=== PATIENT | male | born 1985 ===

== ENCOUNTER 2017-01-10 09:03 | Inpatient (IN) | payer BC, OTHER ==
[~2017-01-10] VITALS: Ht 165.1 cm; Wt 45.4 kg
[2017-01-10] MEDS ORDERED: BUPRENORPHINE HCL 2 MG TAB.SUBL SL PRN (15:00)
[2017-01-10] MEDS ORDERED: MAGNESIUM HYDROXIDE 30 ML LIQUID UDC PO PRN (15:00)
[2017-01-10] MEDS ORDERED: ACETAMINOPHEN 325 MG TABLET PO PRN (15:00)
[2017-01-10] MEDS ORDERED: ONDANSETRON 4 MG/2 ML VIAL IM PRN (15:00)
[2017-01-10] MEDS ORDERED: LOPERAMIDE HCL 2 MG CAPSULE PO PRN ×2 (15:00)
[2017-01-10] MEDS ORDERED: DICYCLOMINE HCL 20 MG TABLET PO PRN (15:00)
[2017-01-10] MEDS ORDERED: diphenhydrAMINE 50 MG CAPSULE PO PRN (15:00)
[2017-01-10] MEDS ORDERED: LORAZEPAM 2 MG/1 ML VIAL IM PRN (15:00)
[2017-01-10] MEDS ORDERED: MAG HYDROX/AL HYDROX/SIMETH 30 ML LIQUID UDC PO PRN (15:00)
[2017-01-10] MEDS ORDERED: HYDROXYZINE PAMOATE 25 MG CAPSULE PO PRN (15:00)
[2017-01-10] MEDS ORDERED: MIRALAX 17 GM POWD.PACK PO PRN (15:00)
[2017-01-10] MEDS ORDERED: LORAZEPAM 1 MG TABLET PO PRN ×2 (15:00)
[2017-01-10] MEDS ORDERED: IBUPROFEN 600 MG TABLET PO PRN (15:00)
--- NOTE | 2017-01-10 16:07 | NUR ---
PRE ASSESSMENT: PT IS IN INTAKE. HE IS A/O X 4. HIS GAIT IS STEADY. HE DENIES S/I AND H/I. HE STATES HE USES 16 MG OF DILAUDID DAILY LAST USED 4-5 DAYS AGO. 50 MCG FENTANYL PATCH Q 3 DAYS. LAST USED 2 DAYS AGO. HE STATES HE HAS RUBN OUT OF BOTH. HE REPORTS USING XANAX 2 MG PER DAY. LAST USED 1 MG THIS AM. HE ALSO USES SOMA 1000 MG. LAST USED 700 MG TODAY. HE SMOKES PT 1-3 GRAMS DAILY FOR NAUSEA. HE REPORTS ALLERGY TO FOSAMAX WHICH CAUSES BONE NECROSIS IN HIS JAW. HE REPORTS MEDICAL HX CONSISTING OF SACROILIITIS,OSTEOPOROSIS,RLS,CHRONIC LOWER BACK PAIN,ANXIETY,DEPRESSION AND INSOMNIA. HOME MEDS BROUGHT IN AND WILL RECONCILE. HE PRESENTS HYPERVERBAL AND FIDGETY. HIS PUPILS ARE MODERATELY DILATED.WILL ASSESS PT FURTHER ON UNIT.
[2017-01-10] MEDS ORDERED: TRAZ-144 PO (16:14)
[2017-01-10] MEDS ORDERED: ONDA4TAB5 PO (16:14)
[2017-01-10] MEDS ORDERED: GABA600T2 PO (16:14)
[2017-01-10] MEDS ORDERED: ROPI1TAB2 PO (16:14)
[2017-01-10] MEDS ORDERED: QUET400T PO (16:14)
[2017-01-10 16:15] VITALS: BP 120/80
[2017-01-10 16:48] LABS: *AMPHETAMINE, URINE POSITIVE (NEGATIVE); *BARBITURATE, URINE NEGATIVE (NEGATIVE); *CANNABINOID, URINE POSITIVE (NEGATIVE); *COCCAINE, URINE NEGATIVE (NEGATIVE); *OPIATE, URINE NEGATIVE (NEGATIVE); *PHENCYCLIDINE SCREEN,URINE NEGATIVE (NEGATIVE)
[2017-01-10] MEDS: LORAZEPAM 1 MG TABLET PO SCH ×2 (17:25→21:35)
[2017-01-10] MEDS: BUPRENORPHINE HCL 2 MG TAB.SUBL SL SCH ×2 (17:27→21:36)
--- NOTE | 2017-01-10 17:43 | NUR ---
A 31 YO MALE ADMITTED FOR MEDICALLY SUPERVISED DETOX OF BENZOS AND OPIATES. HE REPORTS HE USES 16 MG OF DILAUDID PO DAILY LAST USED 4-5 DAYS AGO. 50 MCG FENTANYL PATCH Q 3 DAYS. LAST USED 2 DAYS AGO. HE STATES HE HAS RUN OUT OF BOTH. HE REPORTS USING XANAX 2 MG PER DAY. LAST USED 1 MG THIS AM. HE ALSO USES SOMA 1000 MG. LAST USED 700 MG TODAY. HE SMOKES PT 1-3 GRAMS DAILY FOR NAUSEA AND INSOMNIA. HE STATES HE USED ADDERALL5-20 MG DAILY BUT HASN'T USED IT IN OVER 3 DAYS AND DOES NOT WANT TO CONTINUE USING THAT EITHER. HE STATES HE CANNOT STOP USING ON HIS OWN AND NEEDS HELP. HE STATES HE WANTS SOME QUALITY TO HIS LIFE. HE REPORTS AN ALLERGY TO FOSAMAX.HE REPORTS A SZ FROM BZO W/D IN 2009 OR 2010. HE REPORTS MEDICAL HX OF SACROILIITIS,OSTEOPOROSIS,CHRONIC BACK PAIN,ARTHRITIS,ANXIETY,DEPRESSION,INSOMNIA AND NAUSEA. HE REPORTS A MEDICAL TEAM AT [facility] BUT CANNOT RECALL THE NAMES OF MDS AT THIS TIME. HE BROUGHT HIS OWN MEDS AND THEY WERE RECONCILED. MD ASSESSED PT. PSYCH. ASSESSED PT. SUBUTEX ATIVAN TAPER ORDERED AND ADMINISTERED. COWS 13 CIWA 7. PT REPORTS CHILLS,SWEATS,BODY ACHES,BACK PAIN 8/10,RESTLESSNESS AND ANXIETY. OFFERED SUPPORT. ORIENTED PT TO STAFF AND UNIT. WILL CONTINUE TO PROVIDE SAFE AND SUPPORTIVE ENVIRONMENT.
--- NOTE | 2017-01-10 18:54 | NUR ---
END OF SHIFT: PT IS LAYING IN BED. HE STATES THE DETOX MEDS WERE MILDLY EFFECTIVE. HE STATES HIS BODY TEMP IS HOT AND COLD. HE STATES HE WOULD LIKE TO TRY AND SLEEP. WILL PASS SHIFT REPORT TO ONCOMING NIGHT NURSE
--- NOTE | 2017-01-10 19:16 | NUR ---
Start of shift note Received report from day shift nurse. Pt is a 31 yo male, A+Ox4, presenting to [facility] for Opiate/Benzo/Amphetamine/Marijuana dependence. Pt has Allergies to Alendronate Sodium, is on Full Code status, and on Regular diet. Pt is on Fall and Seizure precautions. Pt has HX of Sacroilitis, Osteoporosis, Chronic back pain, insomnia, depression, anxiety, Seizure, and Left wrist sprain. Pt is on 5 day Ativan and 5 day Subutex tapers, tolerated well. No s/s of distress noted at this time. Respirations even and unlabored. Will continue to monitor.
[2017-01-10 20:11] VITALS: BP 109/77
[2017-01-10] MEDS ORDERED: PATIENT MAY USE OWN MED- MD OK PO SCH (21:00)
[2017-01-10] MEDS: ropiniROLE 1 MG TABLET PO SCH (21:34)
[2017-01-10] MEDS: QUETIAPINE FUMARATE 200 MG TABLET PO SCH (21:35)
[2017-01-10] MEDS: GABAPENTIN 300 MG CAPSULE PO SCH (21:35)
[2017-01-10] MEDS: TRAZODONE 50 MG TABLET PO SCH (21:35)
[2017-01-10 23:17] LABS: BASOPHILS # (AUTO) 0.1 K/uL (0.0-8.0); BASOPHILS % (AUTO) 0.7 % (0.0-2.0); EOSINOPHILS # (AUTO) 0.6 K/uL (0.0-0.7); EOSINOPHILS % (AUTO) 5.6 % (0.0-7.0); HEMATOCRIT 38.1 % (40-50); HEMOGLOBIN 12.9 G/DL (14.0-18.0); LYMPHOCYTES # (AUTO) 3.5 K/UL (0.8-4.8); LYMPHOCYTES % (AUTO) 31.4 % (20.5-51.5); MEAN CORPUSCULAR HEMOGLOBIN 31.9 UUG (27.0-31.0); MEAN CORPUSCULAR HGB CONC 34 g/dL (32.0-37.0); MEAN CORPUSCULAR VOLUME 94.1 FL (82.0-92.0); MONOCYTES # (AUTO) 0.7 K/UL (0.1-1.30); MONOCYTES % (AUTO) 6.3 % (0.0-11.0); NEUTROPHILS # (AUTO) 6.2 K/UL (1.8-8.9); PLATELET COUNT (AUTO) 271 K/UL (150-450); RED BLOOD CELL COUNT(AUTO) 4.05 MIL/UL (4.7-6.1); WHITE BLOOD COUNT (AUTO) 11.1 K/UL (4.0-11.2)
[2017-01-10 23:22] LABS: ALANINE AMINOTRANSFERASE 27 U/L (16-63); ALKALINE PHOSPHATASE 57 U/L (50-136); ASPARTATE AMINOTRANSFERASE 17 U/L (15-37); BILIRUBIN,TOTAL 0.2 mg/dL (0.2-1.0); CARBON DIOXIDE 35 mmol/L (21-32); CHLORIDE 105 mmol/L (98-107); CREATININE 0.7 mg/dL (0.6-1.3); GLUCOSE 99 mg/dL (74-106); MAGNESIUM 2.3 mg/dL (1.8-2.4); POTASSIUM 3.8 mmol/L (3.5-5.1); TOTAL PROTEIN, SERUM 6.5 g/dL (6.4-8.2); UREA NITROGEN, BLOOD 18 mg/dL (7-18)
[2017-01-10 23:25] LABS: ETHANOL < 3 MG/DL (0-0)
[2017-01-11 00:37] VITALS: BP 105/72
[2017-01-11 04:32] VITALS: BP 112/73
--- NOTE | 2017-01-11 06:55 | NUR ---
End of shift note Pt is a 31 yo male, A+Ox4, presenting to [facility] for Opiate/Benzo/Amphetamine/Marijuana dependence. Pt has Allergies to Alendronate Sodium, is on Full Code status, and on Regular diet. Pt is on Fall and Seizure precautions. Pt has HX of Sacroilitis, Osteoporosis, Chronic back pain, insomnia, depression, anxiety, Seizure, and Left wrist sprain. Pt is on 5 day Ativan and 5 day Subutex tapers, tolerated well. Pt slept for a total 9 HRS. Last COWS: 2 and Last CIWA: 1 @0400. No s/s of distress noted at this time. Respirations even and unlabored. Will endorse to day shift nurse.
--- NOTE | 2017-01-11 07:15 | NUR ---
start of shift note: received pt from third shift lieutenant nurse, pt is in stable condition at this time. pt is admitted to [facility] for opiate/meth/benzo withdrawal/dependence. pt's last cows 2 and ciwa 1. pt is tolerating taper medications well. no A/R noted. will continue to monitor pt for any changes and continue to encourage pt to join groups and activities
[2017-01-11] MEDS: MULTIVITAMINS,THERAPEUTIC TABLET PO SCH (08:31)
[2017-01-11] MEDS: LORAZEPAM 1 MG TABLET PO SCH ×3 (08:32→20:28)
[2017-01-11] MEDS: BUPRENORPHINE HCL 2 MG TAB.SUBL SL SCH ×3 (08:32→20:32)
[2017-01-11] MEDS: GABAPENTIN 300 MG CAPSULE PO SCH ×3 (08:32→20:27)
[2017-01-11] MEDS: FAMOTIDINE 20 MG TABLET PO SCH (08:32)
[2017-01-11 09:00] VITALS: BP 119/82
[2017-01-11] MEDS ORDERED: TUBERCULIN,PURIF.PROT.DERIV. 5 TU/0.1 ML TEST ID ONE ×2 (09:00)
[2017-01-11] MEDS: CLONIDINE HCL 0.1 MG TABLET PO PRN ×2 (10:40→16:36)
--- NOTE | 2017-01-11 10:40 | NUR ---
PRN ADMINISTRATION: PT VERBALIZED HE FEELS HIS HEART IS RACING, ASSESSED HEART RATE PT NOTED WITH HR OF 107. PRN CLONIDINE WAS ADMINISTERED.
--- NOTE | 2017-01-11 11:00 | NUR ---
PRN RE-ASSESSMENT: PT VERBALIZED HE FEELS HE IS MORE RELAXED AND IS NOTED WITH HEART RATE OF 89.
[2017-01-11 12:33] VITALS: BP 127/89
[2017-01-11] MEDS: ONDANSETRON ODT 4 MG TAB.RAPDIS SL PRN (13:00)
--- NOTE | 2017-01-11 13:00 | NUR ---
PRN ADMINISTRATION: PT VERBALIZES WHEN LUNCH TRAYS WERE RELEASED THE SMELL OF FOOD MADE HIM REALLY NAUSEOUS. AND HE COULD NOT EAT. PRN ZOFRAN WAS ADMINISTERED.
--- NOTE | 2017-01-11 14:00 | NUR ---
PRN RE-ASSESSMENT: pt verbalized it was effective, pt was able to tolerate lunch.
[2017-01-11] MEDS: BACLOFEN 10 MG TABLET PO SCH ×2 (14:06→20:27)
[2017-01-11] MEDS: METHOCARBAMOL 750 MG TABLET PO PRN (16:36)
--- NOTE | 2017-01-11 16:38 | NUR ---
PRN ADMINISTRATION: PT VERBALIZED BODY ACHES, AND CHILLS. PAIN SCALE 8/10. PRN ROBAXIN AND CLONIDINE WAS ADMINISTERED
[2017-01-11 16:55] VITALS: BP 121/90
--- NOTE | 2017-01-11 17:15 | NUR ---
PRN RE-ASSESSMENT: PT VERBALIZED HE FEELS BETTER, HIS BODY TEMPERATURE IS REGULATED. AND THE BODY ACHES HAVE LESSENED PAIN SCALE 3/10
--- NOTE | 2017-01-11 19:00 | NUR ---
END OF SHIFT NOTE: PT IS IN STABLE CONDITION NO S/S OF PAIN OR DISCOMFORT. PT IS ADMITTED TO [facility] FOR OPIATE/BENZO/METH WITHDRAWAL/DEPENDENCE. PTS LAST COWS 2 AND CIWA 1. PT TOLERATED TAPER WELL NO A/R NOTED. WILL ENDORSE PT TO WEB PORTAL DEVELOPER NURSE.
--- NOTE | 2017-01-11 19:15 | NUR ---
START OF SHIFT Received 31 year old male admitted on 01/10/17 for Xanax, Fentanyl, Dilaudid, and Soma dependency. Pt is full code with allergy to Fosamax. He reports a PMHx of sacroilitis, osteoporosis, chronic lower back pain, insomnia, anxiety, and depression. He reports using Xanax 20 mg daily for 16 months. Last dose was 1 mg on 01/10/17, Fentanyl 50 mcg patch every 3 days for 16 months. Last dose as 1 ptach on 01/08/17. Dilaudid 16 mg PO daily for 16 months. Last dose was 16 mg on 01/06/17. And Soma 1000mg daily for 16 months. Last dose was 700 mg on 01/10/17. Pt place don 5 day Subutex and 5 day Ativan taper started on 01/10/17. Pt currently on day 2/5 and tolerating well. Per endorsement, pt received PRN Clonidine, Zofran, and Robaxin. Pt is alert and oriented x4, breathing is even and unlabored, safety measures in place. Will continue to monitor.
[2017-01-11 20:00] VITALS: BP 133/96
[2017-01-11] MEDS: TRAZODONE 50 MG TABLET PO SCH (20:27)
[2017-01-11] MEDS: QUETIAPINE FUMARATE 200 MG TABLET PO SCH (20:28)
[2017-01-11] MEDS: ropiniROLE 1 MG TABLET PO SCH (20:29)
--- NOTE | 2017-01-12 | NUR ---
VITALS REFUSED, COWS/CIWA DEFERRED 0000 vitals refused. COWS and CIWA deferred d/t pt lying in bed with eyes closed noted to be asleep. Respirations 16, breathing is even and unlabored. Safety measures in place. Will monitor.
--- NOTE | 2017-01-12 04:00 | NUR ---
VITALS REFUSED, COWS/CIWA DEFERRED 0400 vitals refused. COWS and CIWA deferred d/t pt lying in bed with eyes closed noted to be asleep. Respirations 16, breathing is even and unlabored. Safety measures in place. Will continue to monitor.
[2017-01-12 05:06] LABS: HEPATITIS B SURFACE AG Negative (Negative)
--- NOTE | 2017-01-12 07:17 | NUR ---
END OF SHIFT Pt is a 31 year old male admitted on 01/10/17 for Xanax, Fentanyl, Dilaudid, and Soma dependency. Pt is full code with allergy to Fosamax. He reports a PMHx of sacroiliitis, osteoporosis, chronic lower back pain, insomnia, anxiety, and depression. Pt continues on 5 day Subutex and 5 day Ativan taper started on 01/10/17. Pt currently on day 3/5 and tolerating well. He did not receive or request PRN medications. He slept a total of 6 hrs, Intake: 1250 mL, Void: x2, BM:0, COWS:7, CIWA:7. Pt remains alert and oriented x4, breathing is even and unlabored, safety measures in place. Endorsed to oncoming shift.
--- NOTE | 2017-01-12 07:50 | NUR ---
Start of Shift Moderate Needs Teacher received report on 31 year old male admitted on 01/10/17 for detoxification from Fentanyl, Dilaudid, Soma and Xanax. Pt is a full code with NKA, and on a regular diet. PMH of sacrolitis, osteoporosis, chronic back pain, insomnia, anxiety and depression. Pt currently on a 5 day Subutex and 5 day Ativan taper, tolerating well. Moderate Needs Teacher encounters at nurses station. Pt is A/O x4, irritable and entitled. Pt is focused on medication administration. Cooperative and makes needs known. Bed in low position, wheels locked, side rails up x2 and call light within reach. Will continue to monitor, support and encourage according to plan of care. Addendum: 01/12/17 at 0900 by TUSHAR MAYA RN Pt has a drug allergy to Fosamax, joy WELLS
[2017-01-12 08:09] VITALS: BP 126/83
[2017-01-12] MEDS: LORAZEPAM 1 MG TABLET PO SCH ×4 (08:25→20:54)
[2017-01-12] MEDS: MULTIVITAMINS,THERAPEUTIC TABLET PO SCH (08:26)
[2017-01-12] MEDS: FAMOTIDINE 20 MG TABLET PO SCH (08:26)
[2017-01-12] MEDS: BACLOFEN 10 MG TABLET PO SCH ×2 (08:26→15:28)
[2017-01-12] MEDS: GABAPENTIN 300 MG CAPSULE PO SCH ×2 (08:26→15:28)
[2017-01-12] MEDS ORDERED: BUPRENORPHINE HCL 2 MG TAB.SUBL SL SCH (09:00)
[2017-01-12] MEDS ORDERED: LORAZEPAM 1 MG TABLET PO ONE (11:00)
[2017-01-12 12:45] VITALS: BP 128/90
[2017-01-12] MEDS: BUPRENORPHINE HCL 2 MG TAB.SUBL SL SCH ×2 (15:29→20:53)
[2017-01-12 16:30] VITALS: BP 157/110
--- NOTE | 2017-01-12 19:05 | NUR ---
End of Shift Career Portals Teacher provided report on 31 year old male admitted on 01/10/17 for detoxification from Fentanyl, Dilaudid, Soma and Xanax, with no further comments, questions or concerns. Pt is a full code with and allergy to Fosamax, and on a regular diet. PMH of sacrolitis, osteoporosis, chronic back pain, insomnia, anxiety and depression. Pt currently on a 5 day Subutex and 5 day Ativan taper, tolerating well. Pt is A/O x4, irritable and entitled. Pt is focused on medication administration. Compliant when his needs are met. Bed in low position, wheels locked, side rails up x2 and call light within reach. Will continue to monitor, support and encourage according to plan of care.
--- NOTE | 2017-01-12 19:15 | NUR ---
START OF SHIFT Received 31 year old male admitted on 01/10/17 for Xanax, Fentanyl, Dilaudid, and Soma dependency. Pt is full code with allergy to Fosamax. He reports a PMHx of sacroilitis, osteoporosis, chronic lower back pain, insomnia, anxiety, and depression. He reports using Xanax 20 mg daily for 16 months. Last dose was 1 mg on 01/10/17, Fentanyl 50 mcg patch every 3 days for 16 months. Last dose as 1 ptach on 01/08/17. Dilaudid 16 mg PO daily for 16 months. Last dose was 16 mg on 01/06/17. And Soma 1000mg daily for 16 months. Last dose was 700 mg on 01/10/17. Pt is currently receiving a 5 day Subutex and 5 day Ativan taper started on 01/10/17 and tolerating well. Per endorsement, pt did not received PRN medications. Pt received X ray of the left hand d/t complaints of pain. Results showed no abnormalities. Pt is alert and oriented x4, breathing is even and unlabored, safety measures in place. Will continue to monitor.
[2017-01-12 20:00] VITALS: BP 136/95
[2017-01-12] MEDS: CLONIDINE HCL 0.1 MG TABLET PO SCH (20:53)
[2017-01-12] MEDS: QUETIAPINE FUMARATE 200 MG TABLET PO SCH (20:53)
[2017-01-12] MEDS: BACLOFEN 20 MG TABLET PO SCH (20:54)
[2017-01-12] MEDS: ropiniROLE 1 MG TABLET PO SCH (20:54)
[2017-01-12] MEDS: TRAZODONE 50 MG TABLET PO SCH (20:54)
[2017-01-12] MEDS: METHOCARBAMOL 750 MG TABLET PO PRN (20:54)
--- NOTE | 2017-01-12 20:54 | NUR ---
PRN ROBAXIN Pt complains of body aches 01/31. PRN Robaxin administered as ordered. Breathing is even and unlabored, safety measures in place. Will monitor effectiveness.
[2017-01-12] MEDS ORDERED: GABAPENTIN 300 MG CAPSULE PO SCH (21:00)
--- NOTE | 2017-01-12 21:54 | NUR ---
PRN ROBAXIN REASSESSMENT PRN medication effective. Pt reports decrease in pain. Breathing even and unlabored. Safety measures in place. Will monitor.
--- NOTE | 2017-01-13 07:19 | NUR ---
END OF SHIFT Pt is a 31 year old male admitted on 01/10/17 for Xanax, Fentanyl, Dilaudid, and Soma dependency. Pt is full code with allergy to Fosamax. He reports a PMHx of sacroilitis, osteoporosis, chronic lower back pain, insomnia, anxiety, and depression. Pt is currently receiving a 5 day Subutex and 5 day Ativan taper started on 01/10/17 and tolerating well. [id number] pt received PRN Robaxin. He slept a total of 6 hrs, Intake: 1855mL, Void: x4, BM:0, COWS:9, CIWA:8. Pt remains alert and oriented x4, breathing is even and unlabored, safety measures in place. Will endorse to oncoming shift.
[2017-01-13 08:00] VITALS: BP 142/96
--- NOTE | 2017-01-13 08:05 | NUR ---
BEGINNING OF SHIFT Patient endorsement report received from third shift lieutenant nurse, all pertinent information discussed. Patient with admitting Dx: bzo/ Opiate dependence, and substance use of Soma. Patient continues on Ativan and Subutex taper as ordered, well tolerated, no ASE noted, , patient was administered PRN: Robaxin during third shift lieutenant, medication was effective as per third shift lieutenant, patient slept 6 hours. with last cow score of: 9, and last ciwa score of: 8. Fall and seizure precautions observed and in place. safety measures in place. will continue to monitor closely. Patient received in room, alert and oriented x4, educated regarding plan of care for the day and medication regimen with good verbal understanding. Will continue to monitor.
[2017-01-13] MEDS ORDERED: GABAPENTIN 300 MG CAPSULE PO SCH (09:00)
[2017-01-13] MEDS: MULTIVITAMINS,THERAPEUTIC TABLET PO SCH (09:06)
[2017-01-13] MEDS: FAMOTIDINE 20 MG TABLET PO SCH (09:06)
[2017-01-13] MEDS: ONDANSETRON ODT 4 MG TAB.RAPDIS SL PRN (09:06)
[2017-01-13] MEDS: CLONIDINE HCL 0.1 MG TABLET PO SCH ×3 (09:06→20:36)
[2017-01-13] MEDS: BACLOFEN 20 MG TABLET PO SCH ×3 (09:06→20:36)
--- NOTE | 2017-01-13 09:06 | NUR ---
PRN ZOFRAN patient c/o increase nausea, no episodes of vomiting noted. patient was administered Zofran as ordered, will monitor effectiveness of medication.
[2017-01-13] MEDS: LORAZEPAM 1 MG TABLET PO SCH ×3 (09:07→20:36)
[2017-01-13] MEDS: BUPRENORPHINE HCL 2 MG TAB.SUBL SL SCH ×3 (09:07→20:36)
--- NOTE | 2017-01-13 10:06 | NUR ---
ZOFRAN REASSESSMENT Patient reports medication is effective, feels less anxious, will continue to monitor closely.
[2017-01-13 13:00] VITALS: BP 142/90
[2017-01-13] MEDS: GABAPENTIN 400 MG CAPSULE PO SCH ×2 (14:31→20:36)
[2017-01-13 17:00] VITALS: BP 132/90
--- NOTE | 2017-01-13 18:48 | NUR ---
END OF SHIFT Patient alert and oriented x4, vital signs were stable during shift. Patient with admitting Dx: BZO/Opiate dependence, continues on 4 day Ativan taper and 4 day Subutex taper as ordered, and is currently on day 3 of tapers, well tolerated, no ASE noted. Patient compliant with therapeutic plan of care. Patient continues under close observation. 0900 assessment patient presented with: c/o chills, restlessness, bone and joint aches, nausea, irritable, anxiety, goosebump, barely sweating, agitated with cow score of: 11 and ciwa score of: 9; 1300 assessment patient presented with: heart rate of 91, mild bone and joint aches, mild anxiety, mild agitation with cow score of: 3 and ciwa score of: 2; 1700 assessment patient presented with: heart rate of 90, mild bone and joint aches, mild anxiety, mild agitation with cow score of: 3 and ciwa score of: 2. Encouraged adequate PO fluid intake as tolerated. During shift patient received PRN: Zofran, medication effective, one hour post administration, no episodes of vomiting. Patient denies any SI/HI. Encouraged patient to attend group therapies/sessions to learn new coping skills to prevent relapse/ Vital signs were stable during shift. Safety measures in place. Will continue to monitor.
--- NOTE | 2017-01-13 19:12 | NUR ---
Start of shift note Received report from day shift nurse. Pt is a 31 yo male, A+Ox4, presenting to [facility] for Opiate/Benzo/Amphetamine/Marijuana dependence. Pt has Allergies to Alendronate Sodium, is on Full Code status, and on Regular diet. Pt is on Fall and Seizure precautions. Pt has HX of Sacroilitis, Osteoporosis, Chronic back pain, insomnia, depression, anxiety, Seizure, and Left wrist sprain. Pt is on 5 day Ativan and 5 day Subutex tapers, tolerated well. No s/s of distress noted at this time. Respirations even and unlabored. Will continue to monitor.
[2017-01-13] MEDS: TRAZODONE 50 MG TABLET PO SCH (20:36)
[2017-01-13] MEDS: QUETIAPINE FUMARATE 200 MG TABLET PO SCH (20:37)
[2017-01-13] MEDS: ropiniROLE 1 MG TABLET PO SCH (20:37)
[2017-01-13 20:58] VITALS: BP 139/93
[2017-01-14 00:17] VITALS: BP 124/86
[2017-01-14 04:07] VITALS: BP 118/84
--- NOTE | 2017-01-14 07:02 | NUR ---
End of shift note Pt is a 31 yo male, A+Ox4, presenting to [facility] for Opiate/Benzo/Amphetamine/Marijuana dependence. Pt has Allergies to Alendronate Sodium, is on Full Code status, and on Regular diet. Pt is on Fall and Seizure precautions. Pt has HX of Sacroilitis, Osteoporosis, Chronic back pain, insomnia, depression, anxiety, Seizure, and Left wrist sprain. Pt is on 5 day Ativan and 5 day Subutex tapers, tolerated well. Pt slept for a total 7 HRS. Last COWS: 2 and Last CIWA: 1 @0400. No s/s of distress noted at this time. Respirations even and unlabored. Will endorse to day shift nurse.
--- NOTE | 2017-01-14 07:34 | NUR ---
BEGINNING OF SHIFT Patient endorsement report received from mini shifter nurse, all pertinent information discussed. Patient with admitting Dx: bzo/ Opiate dependence, and substance use of Soma. Patient continues on Ativan and Subutex taper as ordered, well tolerated, no ASE noted, patient scheduled to begin day 4 of 4 during shift, patient was administered no PRNs during mini shifter. patient slept 7 hours. with last cow score of: 2, and last ciwa score of: 1. Fall and seizure precautions observed and in place. safety measures in place. will continue to monitor closely. Patient received in room, alert and oriented x4, educated regarding plan of care for the day and medication regimen with good verbal understanding. Will continue to monitor.
[2017-01-14 08:20] VITALS: BP 119/79
[2017-01-14] MEDS: BACLOFEN 20 MG TABLET PO SCH ×3 (08:27→20:04)
[2017-01-14] MEDS: BUPRENORPHINE HCL 2 MG TAB.SUBL SL SCH ×2 (08:27→20:05)
[2017-01-14] MEDS: FAMOTIDINE 20 MG TABLET PO SCH (08:27)
[2017-01-14] MEDS: GABAPENTIN 400 MG CAPSULE PO SCH ×3 (08:27→20:05)
[2017-01-14] MEDS: CLONIDINE HCL 0.1 MG TABLET PO SCH ×3 (08:27→20:04)
[2017-01-14] MEDS: MULTIVITAMINS,THERAPEUTIC TABLET PO SCH (08:27)
[2017-01-14] MEDS: LORAZEPAM 1 MG TABLET PO SCH ×2 (08:27→20:05)
[2017-01-14 13:19] VITALS: BP 146/98
[2017-01-14 17:18] VITALS: BP 109/70
--- NOTE | 2017-01-14 18:52 | NUR ---
END OF SHIFT Patient alert and oriented x4, vital signs were stable during shift. Patient with admitting Dx: BZO/Opiate dependence, continues on 4 day Ativan taper and 4 day Subutex taper as ordered, and is currently on day 4 of tapers, well tolerated, no ASE noted. Patient compliant with therapeutic plan of care. Patient continues under close observation. 0900 assessment patient presented with: Heart rate of 81, c/o chills, mild bone and joint aches, tremors that can be felt but not seen, mild anxiety, and barely sweating with cow score of: 5 and ciwa score of: 3; 1300 assessment patient presented with: heart rate of: 91, mild bone and joint aches, tremors that can be felt but not seen, and mild anxiety with cow score of: 4 and ciwa score of: 2; 1700 assessment patient presented with: mild bone and joint aches, tremors that can be felt but not seen, and mild anxiety with cow score of: 3 and ciwa score of: 2. Detox medication effective at reducing withdrawal symptoms. Encouraged adequate PO fluid intake as tolerated. During shift patient received no PRN medications. Patient denies any SI/HI. Encouraged patient to attend group therapies/sessions to learn new coping skills to prevent relapse, noted attending and participating. Vital signs were stable during shift. Safety measures in place. Will continue to monitor.
[2017-01-14] MEDS: QUETIAPINE FUMARATE 200 MG TABLET PO SCH (20:04)
[2017-01-14] MEDS: TRAZODONE 50 MG TABLET PO SCH (20:05)
[2017-01-14] MEDS: ropiniROLE 1 MG TABLET PO SCH (20:05)
[2017-01-14 20:18] VITALS: BP 118/69
[2017-01-15 00:39] VITALS: BP 115/65
[2017-01-15 04:16] VITALS: BP 112/68
--- NOTE | 2017-01-15 06:50 | NUR ---
End of shift note Pt is a 31 yo male, A+Ox4, presenting to [facility] for Opiate/Benzo/Amphetamine/Marijuana dependence. Pt has Allergies to Alendronate Sodium, is on Full Code status, and on Regular diet. Pt is on Fall and Seizure precautions. Pt has HX of Sacroilitis, Osteoporosis, Chronic back pain, insomnia, depression, anxiety, Seizure, and Left wrist sprain. Pt is on 5 day Ativan and 5 day Subutex tapers, tolerated well. Pt slept for a total 8 HRS. Last COWS: 2 and Last CIWA: 2 @0400. No s/s of distress noted at this time. Respirations even and unlabored. Will endorse to day shift nurse.
--- NOTE | 2017-01-15 07:34 | NUR ---
BEGINNING OF SHIFT Patient endorsement report received from shift stacker nurse, all pertinent information discussed. Patient with admitting Dx: bzo/ Opiate dependence, and substance use of Soma. Patient continues on Ativan and Subutex taper as ordered, well tolerated, no ASE noted, , patient was administered no PRN medications. patient slept 8 hours. with last cow score of: 2, and last ciwa score of: 2. Fall and seizure precautions observed and in place. safety measures in place. will continue to monitor closely. Patient received in room, alert and oriented x4, educated regarding plan of care for the day and medication regimen with good verbal understanding. Will continue to monitor.
[2017-01-15] MEDS: MULTIVITAMINS,THERAPEUTIC TABLET PO SCH (08:11)
[2017-01-15] MEDS: GABAPENTIN 400 MG CAPSULE PO SCH ×3 (08:11→22:15)
[2017-01-15] MEDS: CLONIDINE HCL 0.1 MG TABLET PO SCH ×3 (08:11→22:16)
[2017-01-15] MEDS: FAMOTIDINE 20 MG TABLET PO SCH (08:11)
[2017-01-15] MEDS: BACLOFEN 20 MG TABLET PO SCH ×3 (08:11→22:16)
--- NOTE | 2017-01-15 08:11 | NUR ---
PRN VISTARIL Patient c/ increase anxiety, provided with non pharmacological interventions with no relief, administered Vistaril as ordered, will monitor effectiveness of medication.
[2017-01-15 08:13] VITALS: BP 133/85
[2017-01-15] MEDS: ONDANSETRON ODT 4 MG TAB.RAPDIS SL PRN (08:17)
[2017-01-15] MEDS ORDERED: BUPRENORPHINE HCL 2 MG TAB.SUBL SL SCH (09:00)
--- NOTE | 2017-01-15 09:11 | NUR ---
VISTARIL REASSESSMENT Patient reports medication effective, feels less anxious, will continue to monitor.
[2017-01-15 13:11] VITALS: BP 138/88
[2017-01-15] MEDS: KETOROLAC TROMETHAMINE 30 MG INJ IM PRN (13:20)
--- NOTE | 2017-01-15 13:20 | NUR ---
PRN TORADOL Patient c/o severe generalized body pain 01/31, provided with non pharmacological interventions with no relief, administered Toradol injection as ordered, injection well tolerated. will monitor effectiveness of medication.
--- NOTE | 2017-01-15 14:20 | NUR ---
TORADOL REASSESSMENT Patient reports medication highly effective, current pain level 0/10. Will continue to monitor, safety measurers in place.
[2017-01-15 17:00] VITALS: BP 128/87
--- NOTE | 2017-01-15 18:38 | NUR ---
END OF SHIFT Patient alert and oriented x4, vital signs were stable during shift. Patient with admitting Dx: BZO/Opiate dependence, continues on 4 day Ativan taper and 4 day Subutex taper as ordered, Patient completed tapers, well tolerated, no ASE noted. Patient is scheduled to be discharged tomorrow, noted self motivated towards sobriety. Patient compliant with therapeutic plan of care. Patient continues under close observation. 0900 assessment patient presented with: heart rate of 83, mild bone and joint aches, mild nausea and mild anxiety with ciwa score of: 4 and cow score of: 5; 1300 assessment patient presented with: heart rate of 92, severe bone and joint aches, and mild anxiety with cow score of: 4 and ciwa score of: 3; 1700 assessment patient presented with: heart rate of: 85 mild anxiety with: cow score of: 2 and ciwa score of: 1. Encouraged adequate PO fluid intake as tolerated. During shift patient received PRN:Toradol injection as ordered and Vistaril as ordered , medications effective, one hour post administration. Patient denies any SI/HI. Encouraged patient to attend group therapies/sessions to learn new coping skills to prevent relapse noted attending and participating. Vital signs were stable during shift. Safety measures in place. Will continue to monitor.
--- NOTE | 2017-01-15 19:24 | NUR ---
Start of shift note Received report from day shift nurse. Pt is a 31 yo male, A+Ox4, presenting to [facility] for Opiate/Benzo/Amphetamine/Marijuana dependence. Pt has Allergies to Alendronate Sodium, is on Full Code status, and on Regular diet. Pt is on Fall and Seizure precautions. Pt has HX of Sacroilitis, Osteoporosis, Chronic back pain, insomnia, depression, anxiety, Seizure, and Left wrist sprain. Pt is on 5 day Ativan and 5 day Subutex tapers, tolerated well. No s/s of distress noted at this time. Respirations even and unlabored. Will continue to monitor. Addendum: 01/15/17 at 2115 by MARYJANE KIRAN LVN Pt is due for discharge tomorrow
[2017-01-15 20:40] VITALS: BP 122/83
[2017-01-15] MEDS: ropiniROLE 1 MG TABLET PO SCH (22:16)
[2017-01-15] MEDS: TRAZODONE 50 MG TABLET PO SCH (22:16)
[2017-01-15] MEDS: QUETIAPINE FUMARATE 200 MG TABLET PO SCH (22:16)
[2017-01-16 00:35] VITALS: BP 124/69
[2017-01-16 04:11] VITALS: BP 118/72
[2017-01-16 07:27] LABS: *AMPHETAMINE, URINE NEGATIVE (NEGATIVE); *BARBITURATE, URINE NEGATIVE (NEGATIVE); *CANNABINOID, URINE POSITIVE (NEGATIVE); *COCCAINE, URINE NEGATIVE (NEGATIVE); *OPIATE, URINE NEGATIVE (NEGATIVE); *PHENCYCLIDINE SCREEN,URINE NEGATIVE (NEGATIVE)
[2017-01-16] MEDS ORDERED: HYDR-3895 PO (07:45)
[2017-01-16] MEDS ORDERED: BACL20TA PO (07:45)
[2017-01-16] MEDS ORDERED: GABA-536 PO (07:45)
[2017-01-16] MEDS ORDERED: CLON0.1T14 PO (07:45)
[2017-01-16] MEDS ORDERED: FAMO20TA8 PO (07:45)
[2017-01-16] MEDS ORDERED: ONDA4TAB11 SL (07:45)
--- NOTE | 2017-01-16 07:48 | NUR ---
START OF SHIFT NOTE patient is alert and orientated X4. He is awake up this morning getting ready to be discharge. Patient slept 7 hours last night per night nurse. Last COWS 2 CIWA 1. NO prns given last night. All needs have been met and all safety measures in place. Will continue to monitor.
[2017-01-16 08:02] VITALS: BP 133/80
[2017-01-16 08:18] VITALS: BP 133/82
[2017-01-16] MEDS: GABAPENTIN 400 MG CAPSULE PO SCH (08:18)
[2017-01-16] MEDS: FAMOTIDINE 20 MG TABLET PO SCH (08:18)
[2017-01-16] MEDS: ONDANSETRON ODT 4 MG TAB.RAPDIS SL PRN ×2 (08:18→09:28)
[2017-01-16] MEDS: CLONIDINE HCL 0.1 MG TABLET PO SCH (08:18)
[2017-01-16] MEDS: MULTIVITAMINS,THERAPEUTIC TABLET PO SCH (08:18)
[2017-01-16] MEDS: BACLOFEN 20 MG TABLET PO SCH (08:18)
[2017-01-16] MEDS: KETOROLAC TROMETHAMINE 30 MG INJ IM PRN (08:20)
--- NOTE | 2017-01-16 08:20 | NUR ---
PRN MEDICATION zOFRAN AND TORADOL GIVEN. PATIENT COMPLAINING OF INCREASED PAIN IN BACK AND NAUSEA. WILL CONTINUE TO MONITOR AND REASSESS.
--- NOTE | 2017-01-16 09:00 | NUR ---
PRN REASSESSMENT Patient expresses nausea has improved and nausea and decreased since given Zofran and Toradol. will continue to monitor patient.
--- NOTE | 2017-01-16 09:10 | NUR ---
DISCHARGE NOTE Patient is in stable condition. vital signs within normal limits. Patient is alert and orientated X4. Skin intact. Patient denies any suicidal or homicidal ideations. All discharge paperwork completed dated and signed. Patient is educated about discharge instructions, what to do after discharge and when to contact MD as well as signs and symptoms reportable to MD. Patient verbalized understanding. Patients last LOWS 3 CIWA 3. Patient was discharged from [facility] on 01/16/17 at 0910. patient left with all of hsi belongings and prescriptions. MD has been contacted and notified of patients discharge.
== END 2017-01-16 09:10 | disposition home or self-care (01) | DRG 895 ==
LOC: SRC 14:46
PROVIDERS: ADMIT Internal Medicine; ATTEND Internal Medicine
PROC: HZ2ZZZZ Detoxification Services for Substance Abuse Treatment (ICD-10-PCS; principal; 2017-01-10)
PROC: HZ41ZZZ Group Counseling for Substance Abuse Treatment, Behavioral (ICD-10-PCS; 2017-01-11)
DX: F11.23 Opioid dependence with withdrawal (principal); E87.3 Alkalosis; E86.0 Dehydration; F41.9 Anxiety disorder, unspecified; D53.9 Nutritional anemia, unspecified; S63.502A Unspecified sprain of left wrist, initial encounter; F13.230 Sedative, hypnotic or anxiolytic dependence with withdrawal, uncomplicated; G89.29 Other chronic pain; G47.00 Insomnia, unspecified; Z79.899 Other long term (current) drug therapy; M46.1 Sacroiliitis, not elsewhere classified; F12.10 Cannabis abuse, uncomplicated; G25.81 Restless legs syndrome; F17.210 Nicotine dependence, cigarettes, uncomplicated; X58.XXXA Exposure to other specified factors, initial encounter; Y92.89 Other specified places as the place of occurrence of the external cause; Z81.8 Family history of other mental and behavioral disorders; Z81.1 Family history of alcohol abuse and dependence; M54.5 Low back pain
CPT/HCPCS: 36415; 70030-TC; 73130; 80307; 80324; 80346; 80349; 82306; 83735; 85025; 86580; 86592; 86705; 86803; 87340; 87806; 97165; A4663; G0480; J1885; Q0162